=== PATIENT | male | born 1960 | race Caucasian/White ===

== ENCOUNTER → 2021-12-16 | Outpatient (CLI) | payer BC | LOC: EMI 12-11 08:15 → MRI 10:00 | DX: S46.212A Strain of muscle, fascia and tendon of other parts of biceps, left arm, initial encounter (principal); X50.9XXA Other and unspecified overexertion or strenuous movements or postures, initial encounter | CPT/HCPCS: 73221 ==

== ENCOUNTER → 2021-12-23 | Outpatient (CLI) | payer BC ==
[~2021-12-23] MED LIST: DAILY VITE1 EACH PO
== END ==
LOC: OPSV2 12:30
DX: Z01.810 Encounter for preprocedural cardiovascular examination (principal)
CPT/HCPCS: 93005

== ENCOUNTER → 2021-12-25 | Day surgery (SDC) | payer BC | END | disposition home or self-care (01) | LOC: OR 06:22 | DX: S46.212A Strain of muscle, fascia and tendon of other parts of biceps, left arm, initial encounter (principal); Z20.822 Contact with and (suspected) exposure to COVID-19; X50.0XXA Overexertion from strenuous movement or load, initial encounter | CPT/HCPCS: 73070; 76000; C1713; J0690; J1100; J2001; J2250; J2405; J2704; J2795; J3010; J7120 ==